=== PATIENT | male | born 1980 | race Caucasian/White ===

== ENCOUNTER 2016-08-22 15:02 | Emergency (ER) | payer OTHER ==
[2016-08-22 15:14] VITALS: RESP 16; TEMP 97.9
--- NOTE | 2016-08-22 15:47 | EDPHY ---
H & P Stated Complaint: MARMOLEJO, head laceration, difficulty concentrating x 6 days Time Seen by Provider: 08/22/16 15:15 HPI/ROS: This patient complains of minor head injury associated with some confusion. He thinks that he may have struck his head in his home in the basement on duct work. He is quite tall and he noticed a small wound to his forehead the next day that he admits he has but amnestic to the details of this event. He believes that he struck his head was briefly dazed on Sunday. On Sunday he developed right-sided hemicranial headache that persists at a 3/10 intensity. On Sunday he developed some difficulty with word finding and some difficulty completing simple tasks. His girlfriend was trying to Jamal had a cook a meal and has had able to follow instructions and cup wandering off. He states that this is unusual for him. He does have occasional migraine headaches but this seems different to him. He reports worsening of the headache with movement and associated hyperacusis. No other associated symptoms. This morning he was backing out of the closet and struck his occiput against the threshold of the closet with abrupt increase in the head pain since that time. He drove himself here and felt like he had to concentrate on directions more than usual. ROS: No fevers. No other constitutional symptoms. HEENT: He reports a small canker sore in the left lower lip buccal mucosa with minimal discomfort associated with that. No nasal congestion. No ear symptoms. He denies any visual changes. Neuro: No focal numbness tingling or weakness. He reports that he usually does not have any ROS or neuro deficits with his migraines. Pulmonary: No cough or other symptoms Cardiovascular: No symptoms GI: No nausea or vomiting. : No symptoms Integumentary: 2 small circular abrasions versus rash to the right of midline upper forehead for the patient thinks he struck his head prior to the onset of symptoms. No other rash. He reports no significant discomfort to the area of abrasion. Musculoskeletal: No recent trauma. Endocrine: No symptoms Complete review of symptoms is otherwise negative. Source: Patient Exam Limitations: No limitations - Personal History Current Tetanus Diphtheria and Acellular Pertussis (TDAP): Yes Tetanus Vaccine Date: within 10 years - Medical/Surgical History PMH: Migraines since childhood but no prior imaging per his recollection. Hx Asthma: No Hx Chronic Respiratory Disease: No Hx Diabetes: No Hx Cardiac Disease: No Hx Renal Disease: No Hx Cirrhosis: No Hx Alcoholism: No Hx HIV/AIDS: No Hx Splenectomy or Spleen Trauma: No Other PMH: pneumothorax (x 3 w/chest tube placements), hernia repair, migraine - Family History Significant Family History: No pertinent family hx. No: Vascular disease (No history of intracranial aneurysm or bleeding strokes.) - Social History Smoking Status: Never smoked Alcohol Use: Rarely Drug Use: Marijuana (He reports rare marijuana use about twice a year but none recently. No other drug use) - Physical Exam Exam: Physical exam: Vital signs are normal General: Patient is in no acute distress. HEENT: Is no external evidence of trauma on exam except for 2 small round abrasions versus skin lesions 8 mm diameter just to the left of midline with no surrounding erythema no fluctuance no vesicular component. Minimal localized tenderness. Nose atraumatic. Ears: Clear bilaterally with no hemotympanum. Oropharynx: No dental trauma or malocclusion. No intraoral lacerations. Eyes: Pupils are equal and reactive to light. Extraocular motions are intact. Optic fundi: Clear with no papilledema or hemorrhage. Neck: Trachea is midline with no stridor. The patient has no midline neck tenderness and retains a full range of motion without increase in pain. Lungs: Clear to auscultation bilaterally Cardiac: Regular rate and rhythm no murmur gallop or rub. Chest: Nontender. Abdomen: Soft nontender no organomegaly Back: Nontender Extremities: Atraumatic Neuro: GCS of 15. Cranial nerves II through XII intact. 3 out of 3 five- minute memory is intact. Cerebellar exam is normal as judged by symmetric rapid hand movements bilaterally except for a mild left hand clumsiness that he attributes to being his non dominant hand. No pronator drift. No sensory or motor deficits are appreciated. 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 infection, concussion Constitutional: Initial Vital Signs Temperature (C) 36.6 C 08/22/16 15:04 Heart Rate 65 08/22/16 15:04 Respiratory Rate 16 08/22/16 15:04 Blood Pressure 133/81 H 08/22/16 15:04 O2 Sat (%) 95 08/22/16 15:04 O2 Delivery Mode Room Air Allergies/Adverse Reactions: No Known Allergies Allergy (Verified 08/22/16 15:14) Home Medications: Medication Instructions Recorded Cefdinir [Omnicef (*)] 300 mg PO BID #20 cap 08/22/16 Excedrin Migraine Geltab 08/22/16 Fluticasone Hfa 220 Mcg [Flovent 2 puffs IH DAILY #1 mdi 08/22/16 220 MCG Hfa MDI (*)] Medical Decision Making - Diagnostics Imaging Results: CT brain without contrast: Read by Dr. Godinez read no abnormalities intracranially. Patient does have right more than left maxillary and ethmoidal sinusitis Imaging: Discussed imaging studies w/ yardage caller Radiologist ED Course/Re-evaluation: IV is placed. Patient declined analgesics this time. He agrees to CT scan given significant change in character of this headache and new onset of neuro symptoms compared to a previous headaches. Discussion: Patient presents with concussion and sinusitis after workup here and I think that his difficulty concentrating is likely a combination of these 2 diagnoses. He has a normal CBC basic metabolic panel. 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 I counseled regarding this. TA given lack of risk factors for that diagnosis. Patient will follow up with Dr. Garrido-neurology if he has any ongoing symptoms despite treatment of his sinusitis. Departure - Departure Disposition: Home, Routine, Self-Care Clinical Impression: Concussion Qualifiers: Encounter type: initial encounter Loss of consciousness presence/duration: without LOC Qualified Code(s): S06.0X0A - Concussion without loss of consciousness, initial encounter Sinusitis, acute ethmoidal Qualifiers: Recurrence: non-recurrent Qualified Code(s): J01.20 - Acute ethmoidal sinusitis , unspecified Condition: Good Instructions: Concussion (ED), Sinusitis (ED) Additional Instructions: Diagnosis: 1. Concussion 2. Sinusitis Plan: Humidifier Flonase steroid nasal spray for 10 14 days Omnicef antibiotic Ibuprofen and Tylenol for headaches as needed Follow up with Dr. Garrido-neurologist for any ongoing symptoms despite the treatment plan Go to the emergency department for any significant worsening despite treatment plan Referrals: YEIMI MARVIN [Primary Care Provider] - As per Instructions Charlie Garrido MD [Medical Doctor] - As per Instructions
[2016-08-22 16:09] LABS: % IMMATURE GRANULYOCYTES 0.3 % (0.0-1.1); ABSOLUTE IMMATURE GRANULOCYTES 0.02 10^3/uL (0.00-0.10); ADD DIFF? NO; ADD MORPH? NO; ADD SCAN? NO; ATYPICAL LYMPHOCYTE FLAG 20 (0-99); FRAGMENT RBC FLAG 0 (0-99); LEFT SHIFT FLG 0 (0-99); LIPEMIA HEMOLYSIS FLAG 90 (0-99); MEAN CELL HEMOGLOBIN 29.5 pg (27.9-34.1); MEAN CELL HEMOGLOBIN CONCENTR. 34.9 g/dL (32.4-36.7); MEAN CELL VOLUME 84.5 fL (81.5-99.8); MEAN PLATELET VOLUME 11.3 fL (8.7-11.7); PLATELET CLUMPS FLAG 0 (0-99); PLATELET COUNT 214 10^3/uL (150-400); RED BLOOD CELL COUNT 5.09 10^6/uL (4.40-6.38); RED CELL DISTRIBUTION WIDTH 13.2 % (11.5-15.2)
[2016-08-22 16:16] LABS: ANION GAP 13 mEq/L (8-16); CALCIUM 9.3 mg/dL (8.5-10.4); CARBON DIOXIDE 28 mEq/l (22-31); CHLORIDE 101 mEq/L (97-110); CREATININE 0.8 mg/dL (0.7-1.3); GLOMERULAR FILTRATION RATE > 60; GLUCOSE 90 mg/dL (70-100); POTASSIUM 4.2 mEq/L (3.5-5.2); SODIUM 142 mEq/L (134-144)
[2016-08-22 16:23] LABS: SEDIMENTATION RATE 6 MM/HR (0-15)
[2016-08-22 16:54] VITALS: BP 128/81; PULSE 62; O2SAT 94
== END 2016-08-22 16:37 | disposition home or self-care (01) ==
LOC: CED 15:02
DX: S06.0X0A Concussion without loss of consciousness, initial encounter (principal); J01.20 Acute ethmoidal sinusitis, unspecified; W22.8XXA Striking against or struck by other objects, initial encounter; Y92.009 Unspecified place in unspecified non-institutional (private) residence as the place of occurrence of the external cause; Y99.8 Other external cause status; Y93.89 Activity, other specified
CPT/HCPCS: 70450-PO; 80048-PO; 85025-PO; 85652-PO

== ENCOUNTER → 2017-02-07 | Outpatient (CLI) | payer OTHER | LOC: FIMAGING 09:50 | PROVIDERS: ATTEND Family Medicine | DX: R39.15 Urgency of urination (principal); Q87.410 Marfan syndrome with aortic dilation ==